=== PATIENT | female | born 1970 | race Caucasian/White ===

== ENCOUNTER 2017-09-20 12:30 | Emergency (ER) | payer MEDICARE, OTHER ==
[~2017-09-20] VITALS: Ht 160 cm; Wt 63.5 kg
[~2017-09-20 12:30] MED LIST: CIPR500T94 PO; CLONAZAPAM; CYCL-331 PO; FURO-68 PO; HYDR25TA PO; HYDR4TAB PO; LEVO25TA4 PO; OXYC10TA45 PO; PARO10TA3 PO; PARO20TA99 PO; POTA20TA12 PO; QUET100T4 PO; QUET25TA PO; TRAZ-90 PO; [UNRECOGNIZED DRUG - OTHER]
[2017-09-20 12:42] VITALS: BP 111/75
[2017-09-20] MEDS ORDERED: percogesic PO (12:57)
--- NOTE | 2017-09-20 13:05 | PHYS DOC ---
Past History Past Medical History: Anxiety, Arthritis, Bipolar, Depression, Hepatitis, Other Past Surgical History: No Surgical History Smoking: Cigarettes Alcohol Use: Occasionally Drug Use: Marijuana Adult General Chief Complaint Chief Complaint: MEDICATION REFILL HPI HPI 46-year-old female patient with history of bipolar disorder and anxiety and drug -seeking behavior states she has had pain for 3 weeks and seen by dentist and was told she was told she needs to have tongue biopsy. Patient states she has severe tongue pain and to take her pain medication Opana IR 10 that she had at home for her back pain but ran out of her medication last night and has an appointment with her primary care physician on Saturday and wants pain medication during the weekend. Patient denies fever and chills, problems swallowing, shortness of breath and chest pain. Patient states she was chewing tobacco. Review of Systems Review of Systems Constitutional: Denies fever or chills [] Eyes: Denies change in visual acuity, redness, or eye pain [] HENT: Denies nasal congestion or sore throat, reports tongue pain [] Respiratory: Denies cough or shortness of breath [] Cardiovascular: No additional information not addressed in HPI [] GI: Denies abdominal pain, nausea, vomiting, bloody stools or diarrhea [] : Denies dysuria or hematuria [] Musculoskeletal: Denies back pain or joint pain [] Integument: Denies rash or skin lesions [] Neurologic: Denies headache, focal weakness or sensory changes [] Endocrine: Denies polyuria or polydipsia [] All other systems were reviewed and found to be within normal limits, except as documented in this note. Allergies Allergies Allergies Coded Allergies Type Severity Reaction Last Updated Verified No Known Drug Allergies 08/08/13 No Physical Exam Physical Exam Constitutional: Well nourished, mild distress, non-toxic appearance, anxious. [] HENT: Normocephalic, atraumatic, scar lesion in right lateral side of tongue without sign of infection or abscess, oropharynx moist, no oral exudates, nose normal. [] Eyes: PERRLA, EOMI, conjunctiva normal, no discharge. [] Neck: Normal range of motion, no tenderness, supple, no stridor. [] Cardiovascular:Heart rate regular rhythm, no murmur [] Lungs & Thorax: Bilateral breath sounds clear to auscultation [] Neurologic: Alert and oriented X 3, normal motor function, normal sensory function, no focal deficits noted. [] Psychologic: Anxious EKG EKG [] Radiology/Procedures Radiology/Procedures [] Course & Med Decision Making Course & Med Decision Making Evaluation of patient in ER showed 46-year-old female patient presented for refill of Opana. Patient informed that she needs to follow up with her primary care physician regarding prescription of Opana and prescription for Percogesic for 3 days was given. She was anxious and acting like under influence of methamphetamine. I've spoken with the patient and/or caregivers. I've explained the patient's condition, diagnosis and treatment plan based on information available to me at this time. I've answered the patient's and/or caregivers questions and addressed any concerns. The patient and/or caregivers have a good understanding the patient's diagnosis, condition and treatment plan as can be expected at this point. Vital signs have been stabilized. The patient's condition is stable for discharge from the emergency department. The patient will pursue further outpatient evaluation with her primary care provider or other designated consulting physician as outlined in the discharge instructions. Patient and/or caregivers are agreeable to this plan of care and follow-up instructions have been explained in detail. The patient and/or caregivers have received these instructions in written format and expressed understanding of these discharge instructions. The patient and her caregivers are aware that if any significant change in condition or worsening of symptoms should prompt him to immediately return to this of the closest emergency department. If an emergent department is not readily available I would encourage him to call 911. [place] Disclaimer Dragon Disclaimer This electronic medical record was generated, in whole or in part, using a voice recognition dictation system. Departure Departure: Impression: Primary Impression: Encounter for medication refill Disposition: HOME, SELF-CARE (At 1255) Condition: STABLE Referrals: KENNETH BELTRE MD (PCP) Patient Instructions: Medication Refill, Emergency Department Additional Instructions: Follow-up with your primary care physician in 2-3 days Return to ER if not getting better Scripts [percogesic] No Conflict Check 1 TAB PO BID Y for PAIN, #6 Prov: SHIRLEY SAMAYOA MD 09/20/17 SHIRLEY SAMAYOA MD Sep 20, 2017 13:05
== END 2017-09-20 13:22 | disposition home or self-care (01) ==
LOC: ER 12:30
DX: Z76.0 Encounter for issue of repeat prescription (principal); F41.9 Anxiety disorder, unspecified; F31.9 Bipolar disorder, unspecified; Z76.5 Malingerer [conscious simulation]; F17.210 Nicotine dependence, cigarettes, uncomplicated; F12.10 Cannabis abuse, uncomplicated
CPT/HCPCS: 99282